=== PATIENT | male | born 1940 | race Caucasian/White ===

== ENCOUNTER 2020-10-10 12:47 | Inpatient (IN) ==
[2020-10-10 13:19] LABS: Hemoglobin 9.7 g/dL (12.9-16.9); Nucleated Red Blood Cells 0.7 /100 WBC (0)
[2020-10-10 13:21] LABS: Basophils # 0.1 K/mcL (0.0-0.2); Hematocrit 28.3 % (37.5-50.1); Immature Platelets 1.9 % (1.1-6.1); Mean Corpuscular HGB Conc 34.3 g/dL (31.6-35.5); Mean Corpuscular Hemoglobin 36.7 pg (28.0-33.3); Mean Corpuscular Volume 107.2 fL (83.0-100.0); Mean Platelet Volume 10.3 fL (9.4-12.4); Red Blood Count 2.64 M/mcL (4.19-5.50); Red Cell Distribution Width 17.7 % (11.5-14.5); White Blood Count 13.3 K/mcL (4.3-11.1)
[2020-10-10 13:30] LABS: INR 1.4; Prothrombin Time 16.1 Seconds (9.4-12.1)
[2020-10-10 13:41] LABS: BUN/Creatinine Ratio 25 (6-26); Blood Urea Nitrogen 32 mg/dL (8-23); Carbon Dioxide 22 mEq/L (23-29); Chloride 109 mEq/L (98-107); Glucose 114 mg/dL (70-105); Osmolality,Calculated 296 (280-300); Potassium 3.9 mEq/L (3.5-5.1); Sodium 139 mEq/L (136-145); Troponin I < 0.03 ng/mL (< 0.04); eGFR For African Americans > 60 (> 60); eGFR For Non-African Americans 55 (> 60)
[2020-10-10 13:47] LABS: Platelet Count 85 K/mcL (140-400)
[2020-10-10 13:56] LABS: Lymphocytes # 3.9 K/mcL (0.6-4.6); Monocytes # 6.4 K/mcL (0.0-1.3); Neutrophils # 0.5 K/mcL (1.6-8.9)
[2020-10-10 13:57] LABS: Anisocytosis 1+ (Not Present); Platelet Estimate Decreased (Normal); Reactive Lymphocytes Present (Not Present)
[2020-10-10] MEDS ORDERED: Aspirin 81 MG TAB.CHEW PO ONE (14:03)
[2020-10-10] MEDS ORDERED: Naloxone 0.4 MG/ML INJ IVP PRN (15:53)
[2020-10-10] MEDS ORDERED: *HR* OxyCODONE Immed Rel 5 MG TABLET PO PRN (16:10)
[2020-10-10] MEDS ORDERED: Acetaminophen 325 MG TABLET PO PRN (16:10)
[2020-10-10] MEDS ORDERED: *HR* HYDROcodone/Acet 5/325 mg TABLET PO PRN (16:10)
[2020-10-10] MEDS ORDERED: Ondansetron 4 MG/2 ML VIAL IVP PRN (16:10)
[2020-10-10] MEDS ORDERED: Melatonin 3 MG TABLET PO PRN (16:10)
[2020-10-10 16:11] LABS: Bilirubin,Urine Negative (Negative); Blood,Urine Trace (Negative); Clarity,Urine Clear (Clear); Color,Urine Yellow (Yellow); Glucose,Urine (UA) Normal (Normal); Granular Casts,Urine Few per lpf (None Seen); Hyaline Casts,Urine Few per lpf (None Seen); Ketones,Urine Negative (Negative); Leukocyte Esterase,Urine Negative (Negative); Mucus,Urine Few per lpf (None-Few); Nitrite,Urine Negative (Negative); Protein,Urine 50 mg/dL (Neg-Trace); Specific Gravity,Urine 1.027 (1.010-1.025); Squamous Epithelial Cell,Urine Few per hpf (None-Few)
[2020-10-10 17:08] LABS: Chol/HDL Ratio 4.8 (0-4.9); Cholesterol 81 mg/dL (< 200); HDL Cholesterol 17 mg/dL (40-59); LDL Cholesterol,Calculated 20 mg/dL (< 100); Triglycerides 219 mg/dL (< 150)
[2020-10-10] MEDS ORDERED: Perflutren Lipid Microsphere 1.3 ML in 0.9 % Sodium Chloride 8.7 ML IVP PRN (18:09)
[2020-10-10] MEDS ORDERED: Nitroglycerin 0.4 MG TAB.SUBL SL PRN (18:18)
[2020-10-11 00:53] LABS: Hematocrit 25.5 % (37.5-50.1); Hemoglobin 8.4 g/dL (12.9-16.9); Immature Platelets 2.2 % (1.1-6.1); Mean Corpuscular HGB Conc 32.9 g/dL (31.6-35.5); Mean Corpuscular Hemoglobin 35.3 pg (28.0-33.3); Mean Corpuscular Volume 107.1 fL (83.0-100.0); Mean Platelet Volume 9.9 fL (9.4-12.4); Nucleated Red Blood Cells 0.9 /100 WBC (0); Red Blood Count 2.38 M/mcL (4.19-5.50); Red Cell Distribution Width 17.6 % (11.5-14.5); White Blood Count 8.4 K/mcL (4.3-11.1)
[2020-10-11 00:56] LABS: Platelet Count 67 K/mcL (140-400)
[2020-10-11 01:09] LABS: Alanine Aminotransferase 13 Units/L (7-52); Albumin 3.5 g/dL (3.5-5.7); Albumin/Globulin Ratio 1.3 (1.1-2.2); Alkaline Phosphatase 44 Units/L (34-104); Aspartate Amino Transferase 20 Units/L (13-39); BUN/Creatinine Ratio 25 (6-26); Bilirubin,Total 0.5 mg/dL (0.3-1.0); Blood Urea Nitrogen 30 mg/dL (8-23); Calcium 8.7 mg/dL (8.6-10.3); Carbon Dioxide 21 mEq/L (23-29); Chloride 110 mEq/L (98-107); Globulin 2.8 g/dL (2.4-3.5); Glucose 95 mg/dL (70-105); Osmolality,Calculated 294 (280-300); Phosphorous 3.5 mg/dL (2.7-4.5); Potassium 3.8 mEq/L (3.5-5.1); Sodium 139 mEq/L (136-145); Total Protein 6.3 g/dL (6.4-8.9); eGFR For African Americans > 60 (> 60); eGFR For Non-African Americans 58 (> 60)
[2020-10-11 01:22] LABS: INR 1.4; Prothrombin Time 16.2 Seconds (9.4-12.1); Thyroid Stimulating Hormone 2.953 mcIU/mL (0.340-5.600)
[2020-10-11 01:42] LABS: Folate > 22.3 ng/mL (3.0-16.0); Vitamin B12 672 pg/mL (250-1100)
[2020-10-11 02:08] LABS: Lymphocytes # 4.7 K/mcL (0.6-4.6); Lymphocytes % 56.3 %; Monocytes # 1.4 K/mcL (0.0-1.3); Monocytes % 16.7 %; Myelocytes % 18.8 % (0); Neutrophils # 0.5 K/mcL (1.6-8.9); Segmented Neutrophils % 6.3 %
[2020-10-11 02:09] LABS: Anisocytosis 1+ (Not Present); Hypochromasia Present (Not Present)
[2020-10-11 02:10] LABS: Platelet Estimate Marked Decrease (Normal); Reactive Lymphocytes Present (Not Present); Tear Drop Cells 1+ (Not Present)
[2020-10-11 03:05] LABS: Estimated Average Glucose 146 mg/dl; Hemoglobin A1C 6.7 %
[2020-10-11] MEDS: Multivit/Ca/Min/Fe/FA 1 TAB TABLET PO SCH (08:29)
[2020-10-11] MEDS: Metoprolol XL (24 HR) Succ 25 MG TAB.ER.24H PO SCH (08:29)
[2020-10-11] MEDS: Aspirin Enteric Coated 81 MG Tablet PO SCH (08:29)
[2020-10-11] MEDS: Furosemide 20 MG/2 ML VIAL IVP SCH ×2 (11:00→20:21)
[2020-10-11] MEDS ORDERED: 0.9 % Sodium Chloride 500 ML ONE (14:29)
[2020-10-11] MEDS: Isosorbide MONOnitrate (24 HR) 30 MG TAB.ER.24H PO SCH (15:28)
[2020-10-12 02:59] LABS: Nucleated Red Blood Cells 0.5 /100 WBC (0); Red Cell Distribution Width 17.8 % (11.5-14.5)
[2020-10-12 03:01] LABS: Hematocrit 25.3 % (37.5-50.1); Hemoglobin 8.5 g/dL (12.9-16.9); Immature Platelets 2.2 % (1.1-6.1); Mean Corpuscular HGB Conc 33.6 g/dL (31.6-35.5); Mean Corpuscular Hemoglobin 36.2 pg (28.0-33.3); Mean Corpuscular Volume 107.7 fL (83.0-100.0); Mean Platelet Volume 10.1 fL (9.4-12.4); Red Blood Count 2.35 M/mcL (4.19-5.50)
[2020-10-12 03:04] LABS: Platelet Count 73 K/mcL (140-400)
[2020-10-12 03:19] LABS: Calcium 8.7 mg/dL (8.6-10.3); Potassium 4.1 mEq/L (3.5-5.1)
[2020-10-12 04:31] LABS: Lymphocytes # 3.8 K/mcL (0.6-4.6); Monocytes # 6.5 K/mcL (0.0-1.3); Reactive Lymphocytes Present (Not Present)
[2020-10-12 04:32] LABS: Anisocytosis 1+ (Not Present); Platelet Estimate Decreased (Normal)
[2020-10-12] MEDS: Isosorbide MONOnitrate (24 HR) 30 MG TAB.ER.24H PO SCH (07:30)
[2020-10-12] MEDS: Metoprolol XL (24 HR) Succ 25 MG TAB.ER.24H PO SCH (07:30)
[2020-10-12] MEDS: Aspirin Enteric Coated 81 MG Tablet PO SCH (07:30)
[2020-10-12] MEDS: Multivit/Ca/Min/Fe/FA 1 TAB TABLET PO SCH (07:30)
[2020-10-12] MEDS ORDERED: 0.9 % Sodium Chloride 250 ML IVC SCH (08:45)
[2020-10-12 15:22] VITALS: BP 149/66
== END 2020-10-12 16:14 | disposition home or self-care (01) | DRG 834 ==
LOC: EMEROOARM 12:47 → 2ANU 12:47 → SUATTDRO 15:46 → 2ANU 16:58
PROVIDERS: ADMIT Internal Medicine; ATTEND Internal Medicine

== ENCOUNTER 2020-11-20 14:57 | Inpatient (IN) ==
[~2020-11-20 14:57] MED LIST: 0.9 % Sodium Chloride 250 ML IVC SCH
[2020-11-20] MEDS ORDERED: Naloxone 0.4 MG/ML INJ IVP PRN (23:37)
[2020-11-21] MEDS: Cefepime HCl 2,000 MG in Water for inj. (sterile) 20 ML IVP SCH ×3 (00:01→20:27)
[2020-11-21 04:37] LABS: Bilirubin,Urine Negative (Negative); Blood,Urine Negative (Negative); Clarity,Urine Clear (Clear); Color,Urine Light-Yellow (Yellow); Glucose,Urine (UA) Normal (Normal); Ketones,Urine Negative (Negative); Leukocyte Esterase,Urine Negative (Negative); Nitrite,Urine Negative (Negative); Protein,Urine Trace mg/dL (Neg-Trace); Specific Gravity,Urine 1.016 (1.010-1.025); Urobilinogen,Urine Normal (Normal)
[2020-11-21 04:38] LABS: Hematocrit 21.5 % (37.5-50.1); Hemoglobin 7.4 g/dL (12.9-16.9); Mean Corpuscular HGB Conc 34.4 g/dL (31.6-35.5); Red Blood Count 2.31 M/mcL (4.19-5.50)
[2020-11-21 04:40] LABS: Immature Granulocytes % 4.6 % (0-4); Immature Platelets 3.9 % (1.1-6.1); Lymphocytes # 0.3 K/mcL (0.6-4.6); Mean Corpuscular Volume 93.1 fL (83.0-100.0); Mean Platelet Volume 11.8 fL (9.4-12.4); Monocytes # 0.2 K/mcL (0.0-1.3); Monocytes % 30.8 %; Neutrophils # 0.2 K/mcL (1.6-8.9); Red Cell Distribution Width 15.6 % (11.5-14.5); Segmented Neutrophils % 24.6 %
[2020-11-21 04:52] LABS: Albumin 2.9 g/dL (3.5-5.7); Albumin/Globulin Ratio 1.5 (1.1-2.2); Bilirubin,Total 1.2 mg/dL (0.3-1.0); Calcium 7.6 mg/dL (8.6-10.3); Potassium 4.3 mEq/L (3.5-5.1); Total Protein 4.9 g/dL (6.4-8.9)
[2020-11-21 05:05] LABS: Platelet Count 23 K/mcL (140-400); White Blood Count 0.7 K/mcL (4.3-11.1)
[2020-11-21 05:53] LABS: Platelet Estimate Marked Decrease (Normal)
[2020-11-21 06:32] LABS: Adenovirus Not Detected (Not Detect); Bordetella Pertussis Not Detected (Not Detect); Chlamydophila pneumoniae Not Detected (Not Detect); Coronavirus 229E Not Detected (Not Detect); Coronavirus HKU1 Not Detected (Not Detect); Coronavirus NL63 Not Detected (Not Detect); Coronavirus OC43 Not Detected (Not Detect); Human Metapneumovirus Not Detected (Not Detect); Human Rhinovirus/Enterovirus Not Detected (Not Detect); Influenza A Subtype 2009 H1 Not Detected (Not Detect); Influenza B Not Detected (Not Detect); Mycoplasma pneumoniae Not Detected (Not Detect); Parainfluenza Virus 1 Not Detected (Not Detect); Parainfluenza Virus 2 Not Detected (Not Detect); Parainfluenza Virus 3 Not Detected (Not Detect); Parainfluenza Virus 4 Not Detected (Not Detect); Respiratory Syncytial Virus Not Detected (Not Detect); SARS-CoV-2 Not Detected (Not Detect)
[2020-11-21] MEDS ORDERED: Sodium Bicarbonate 75 MEQ in 0.45 % Sodium Chloride 1,000 ML IVC SCH (08:45)
[2020-11-21] MEDS ORDERED: Vancomycin 1,500 MG/265 ML IV.SOLN IVPB SCH (10:00)
[2020-11-21] MEDS: VENETOCLAX 100 MG PO SCH (13:32)
[2020-11-21] MEDS ORDERED: Acetaminophen 325 MG TABLET PO ONE (17:13)
[2020-11-21] MEDS ORDERED: Acetaminophen IV 1,000 MG/100 ML BAG IVPB ONE (19:54)
[2020-11-21 20:25] LABS: Bilirubin,Urine Negative (Negative); Blood,Urine Negative (Negative); Clarity,Urine Clear (Clear); Color,Urine Light-Yellow (Yellow); Glucose,Urine (UA) Normal (Normal); Ketones,Urine Negative (Negative); Leukocyte Esterase,Urine Negative (Negative); Mucus,Urine Few per lpf (None-Few); Nitrite,Urine Negative (Negative); Protein,Urine Trace mg/dL (Neg-Trace); RBC,Urine 0-3 per hpf (0-3); Specific Gravity,Urine 1.015 (1.010-1.025); WBC,Urine 0-3 per hpf (0-3)
[2020-11-22 06:13] LABS: Eosinophils % 2.6 %; Hematocrit 21.8 % (37.5-50.1); Hemoglobin 7.4 g/dL (12.9-16.9); Lymphocytes # 0.2 K/mcL (0.6-4.6); Lymphocytes % 56.4 %; Mean Corpuscular HGB Conc 33.9 g/dL (31.6-35.5); Mean Corpuscular Hemoglobin 31.8 pg (28.0-33.3); Mean Corpuscular Volume 93.6 fL (83.0-100.0); Mean Platelet Volume 12.1 fL (9.4-12.4); Monocytes # 0.1 K/mcL (0.0-1.3); Monocytes % 23.1 %; Neutrophils # 0.1 K/mcL (1.6-8.9); Red Blood Count 2.33 M/mcL (4.19-5.50); Red Cell Distribution Width 15.2 % (11.5-14.5); Segmented Neutrophils % 17.9 %
[2020-11-22 06:19] LABS: Platelet Count 33 K/mcL (140-400); White Blood Count 0.4 K/mcL (4.3-11.1)
[2020-11-22 06:32] LABS: Anisocytosis 1+ (Not Present); Platelet Estimate Marked Decrease (Normal); Reactive Lymphocytes Present (Not Present)
[2020-11-22 06:42] LABS: BUN/Creatinine Ratio 20 (6-26); Blood Urea Nitrogen 23 mg/dL (8-23); Calcium 7.6 mg/dL (8.6-10.3); Carbon Dioxide 20 mEq/L (23-29); Chloride 109 mEq/L (98-107); Glucose 104 mg/dL (70-105); Magnesium 1.9 mg/dL (1.6-2.6); Osmolality,Calculated 282 (280-300); Phosphorous 2.4 mg/dL (2.7-4.5); Potassium 4.3 mEq/L (3.5-5.1); Sodium 134 mEq/L (136-145); eGFR For African Americans > 60 (> 60); eGFR For Non-African Americans > 60 (> 60)
[2020-11-22] MEDS: Cefepime HCl 2,000 MG in Water for inj. (sterile) 20 ML IVP SCH ×2 (08:01→20:10)
[2020-11-22] MEDS: allopurinoL 300 MG TABLET PO SCH (08:02)
[2020-11-22] MEDS: VENETOCLAX 100 MG PO SCH (08:02)
[2020-11-22] MEDS: Metoprolol XL (24 HR) Succ 25 MG TAB.ER.24H PO SCH (08:03)
[2020-11-22] MEDS: Magic Mouthwash 10 ML UD Cup PO SCH ×3 (08:56→16:08)
[2020-11-22] MEDS ORDERED: Sennosides/Docusate Sodium TABLET PO PRN (11:43)
[2020-11-22] MEDS ORDERED: Isovue-370 500 ML BOTTLE PO ONE (18:15)
[2020-11-22] MEDS: MetroNIDAZOLE 500 MG/100 ML 500 MG/100 ML BAG IVPB SCH (23:13)
[2020-11-23 03:20] LABS: Red Blood Count 2.19 M/mcL (4.19-5.50)
[2020-11-23 03:22] LABS: Hematocrit 20.5 % (37.5-50.1); Hemoglobin 6.8 g/dL (12.9-16.9); Immature Platelets 3.5 % (1.1-6.1); Lymphocytes % 76.5 %; Mean Corpuscular HGB Conc 33.2 g/dL (31.6-35.5); Mean Corpuscular Hemoglobin 31.1 pg (28.0-33.3); Mean Corpuscular Volume 93.6 fL (83.0-100.0); Mean Platelet Volume 10.7 fL (9.4-12.4); Monocytes % 11.8 %; Red Cell Distribution Width 15.4 % (11.5-14.5); Segmented Neutrophils % 11.7 %
[2020-11-23 03:25] LABS: Lymphocytes # 0.2 K/mcL (0.6-4.6); Platelet Count 49 K/mcL (140-400)
[2020-11-23 03:26] LABS: White Blood Count 0.3 K/mcL (4.3-11.1)
[2020-11-23 03:40] LABS: BUN/Creatinine Ratio 19 (6-26); Blood Urea Nitrogen 21 mg/dL (8-23); Calcium 7.4 mg/dL (8.6-10.3); Carbon Dioxide 21 mEq/L (23-29); Chloride 107 mEq/L (98-107); Glucose 107 mg/dL (70-105); Lipase 24 Units/L (11-82); Magnesium 1.8 mg/dL (1.6-2.6); Osmolality,Calculated 277 (280-300); Phosphorous 2.2 mg/dL (2.7-4.5); Potassium 4.2 mEq/L (3.5-5.1); Sodium 132 mEq/L (136-145); eGFR For African Americans > 60 (> 60); eGFR For Non-African Americans > 60 (> 60)
[2020-11-23 03:44] LABS: Platelet Estimate Decreased (Normal)
[2020-11-23] MEDS: Magic Mouthwash 10 ML UD Cup PO SCH ×3 (08:11→18:14)
[2020-11-23] MEDS: Cefepime HCl 2,000 MG in Water for inj. (sterile) 20 ML IVP SCH (08:12)
[2020-11-23] MEDS: allopurinoL 300 MG TABLET PO SCH (08:13)
[2020-11-23] MEDS: Metoprolol XL (24 HR) Succ 25 MG TAB.ER.24H PO SCH (08:13)
[2020-11-23] MEDS: VENETOCLAX 100 MG PO SCH (08:14)
[2020-11-23] MEDS: MetroNIDAZOLE 500 MG/100 ML 500 MG/100 ML BAG IVPB SCH ×2 (08:17→18:14)
[2020-11-23] MEDS ORDERED: Calcium Gluconate 1gm/50mL 1 GM/50 ML BAG IVPB ONE (09:13)
[2020-11-23 16:03] VITALS: BP 110/68
[2020-11-23 17:22] LABS: Hematocrit 24.2 % (37.5-50.1); Hemoglobin 8.1 g/dL (12.9-16.9)
== END 2020-11-23 18:54 | disposition home or self-care (01) | DRG 808 ==
LOC: SUATTDRO → INFINJ 14:57 → 3BNU 15:00
PROVIDERS: ADMIT Internal Medicine; ATTEND Internal Medicine

== ENCOUNTER 2020-12-30 20:23 | Observation (INO) ==
[2020-12-30] MEDS ORDERED: 0.9 % Sodium Chloride 1,000 ML IVC ONE (21:06)
[2020-12-30] MEDS ORDERED: Isovue-370 500 ML BOTTLE IVP ONE (21:06)
[2020-12-30 21:15] LABS: Basophils % 0.6 %; Eosinophils % 1.3 %; Hematocrit 38.3 % (37.5-50.1); Hemoglobin 12.7 g/dL (12.9-16.9); Immature Platelets 1.6 % (1.1-6.1); Lymphocytes # 0.5 K/mcL (0.6-4.6); Lymphocytes % 30.8 %; Mean Corpuscular HGB Conc 33.2 g/dL (31.6-35.5); Mean Corpuscular Hemoglobin 32.9 pg (28.0-33.3); Mean Corpuscular Volume 99.2 fL (83.0-100.0); Mean Platelet Volume 8.6 fL (9.4-12.4); Monocytes % 1.9 %; Red Blood Count 3.86 M/mcL (4.19-5.50); Red Cell Distribution Width 19.6 % (11.5-14.5); Segmented Neutrophils % 65.4 %; White Blood Count 1.6 K/mcL (4.3-11.1)
[2020-12-30 21:20] LABS: Bilirubin,Urine Negative (Negative); Blood,Urine Small (Negative); Clarity,Urine Clear (Clear); Color,Urine Yellow (Yellow); Glucose,Urine (UA) Normal (Normal); Hyaline Casts,Urine Few per lpf (None Seen); Ketones,Urine Trace mg/dL (Negative); Leukocyte Esterase,Urine Negative (Negative); Mucus,Urine Few per lpf (None-Few); Nitrite,Urine Negative (Negative); Protein,Urine 50 mg/dL (Neg-Trace); Specific Gravity,Urine 1.019 (1.010-1.025); Squamous Epithelial Cell,Urine Few per hpf (None-Few); Urobilinogen,Urine Normal (Normal)
[2020-12-30 21:32] LABS: BUN/Creatinine Ratio 26 (6-26); Blood Urea Nitrogen 22 mg/dL (8-23); Calcium 9.5 mg/dL (8.6-10.3); Carbon Dioxide 22 mEq/L (23-29); Chloride 103 mEq/L (98-107); Glucose 132 mg/dL (70-105); Osmolality,Calculated 285 (280-300); Potassium 3.9 mEq/L (3.5-5.1); Sodium 135 mEq/L (136-145); eGFR For African Americans > 60 (> 60); eGFR For Non-African Americans > 60 (> 60)
[2020-12-30 21:41] LABS: Alanine Aminotransferase 11 Units/L (7-52); Albumin/Globulin Ratio 1.4 (1.1-2.2); Alkaline Phosphatase 70 Units/L (34-104); Aspartate Amino Transferase 14 Units/L (13-39); Bilirubin,Direct 0.2 mg/dL (0.0-0.2); Bilirubin,Indirect 0.7 mg/dL (0.0-1.0); Bilirubin,Total 0.9 mg/dL (0.3-1.0); Globulin 2.9 g/dL (2.4-3.5); Lipase 7 Units/L (11-82); Total Protein 6.9 g/dL (6.4-8.9)
[2020-12-30 21:46] LABS: Neutrophils # 1.1 K/mcL (1.6-8.9)
[2020-12-30 21:47] LABS: Large Platelets Present (Not Present); Platelet Count 52 K/mcL (140-400); Platelet Estimate Decreased (Normal); Reactive Lymphocytes Present (Not Present)
[2020-12-30] MEDS ORDERED: Piperacillin/Tazobactam 3.375 GM in 0.9 % Sodium Chloride Mini Bag 100 ML IVPB ONE (22:45)
[2020-12-30] MEDS ORDERED: 0.9 % Sodium Chloride 1,000 ML IVC SCH (23:30)
[2020-12-30] MEDS ORDERED: Ketorolac 30 MG/ML VIAL IVP PRN (23:34)
[2020-12-30] MEDS ORDERED: Naloxone 0.4 MG/ML INJ IVP PRN (23:34)
[2020-12-30] MEDS ORDERED: *HR* Promethazine 25 MG/ML VIAL IM PRN (23:34)
[2020-12-30] MEDS ORDERED: Ondansetron 4 MG/2 ML VIAL IVP PRN (23:34)
[2020-12-31 02:01] LABS: Influenza A PCR Negative (Negative); Influenza B PCR Negative (Negative); Resp. Syncytial Virus PCR Negative (Negative)
[2020-12-31 02:02] LABS: SARS-CoV-2 by PCR (In House) Negative (Negative)
[2020-12-31] MEDS ORDERED: Levothyroxine Sodium 100 MCG VIAL IVP SCH (06:30)
[2020-12-31 06:49] LABS: Hemoglobin 11.2 g/dL (12.9-16.9); Red Cell Distribution Width 19.6 % (11.5-14.5)
[2020-12-31 06:52] LABS: Basophils % 3.1 %; Eosinophils % 3.1 %; Hematocrit 32.9 % (37.5-50.1); Immature Platelets 1.5 % (1.1-6.1); Lymphocytes # 0.2 K/mcL (0.6-4.6); Lymphocytes % 68.8 %; Mean Corpuscular Hemoglobin 33.6 pg (28.0-33.3); Mean Corpuscular Volume 98.8 fL (83.0-100.0); Mean Platelet Volume 10.9 fL (9.4-12.4); Monocytes % 3.1 %; Neutrophils # 0.1 K/mcL (1.6-8.9); Red Blood Count 3.33 M/mcL (4.19-5.50); Segmented Neutrophils % 21.9 %
[2020-12-31 06:56] LABS: Platelet Count 44 K/mcL (140-400)
[2020-12-31 06:59] LABS: White Blood Count 0.3 K/mcL (4.3-11.1)
[2020-12-31 07:00] LABS: Platelet Estimate Decreased (Normal); Reactive Lymphocytes Present (Not Present)
[2020-12-31 07:08] LABS: Alanine Aminotransferase 9 Units/L (7-52); Albumin 3.3 g/dL (3.5-5.7); Albumin/Globulin Ratio 1.4 (1.1-2.2); Alkaline Phosphatase 56 Units/L (34-104); Aspartate Amino Transferase 13 Units/L (13-39); BUN/Creatinine Ratio 26 (6-26); Bilirubin,Total 0.7 mg/dL (0.3-1.0); Blood Urea Nitrogen 23 mg/dL (8-23); Calcium 8.4 mg/dL (8.6-10.3); Carbon Dioxide 23 mEq/L (23-29); Chloride 107 mEq/L (98-107); Globulin 2.3 g/dL (2.4-3.5); Glucose 117 mg/dL (70-105); Osmolality,Calculated 287 (280-300); Sodium 136 mEq/L (136-145); Total Protein 5.6 g/dL (6.4-8.9); eGFR For African Americans > 60 (> 60); eGFR For Non-African Americans > 60 (> 60)
[2020-12-31] MEDS ORDERED: Piperacillin/Tazobactam 3.375 GM in 0.9 % Sodium Chloride Mini Bag 100 ML IVPB SCH (08:00)
[2020-12-31] MEDS ORDERED: *HR* HYDROmorphone PF 0.5 MG/0.5 ML SYRINGE IVP PRN ×2 (09:18→15:56)
[2020-12-31] MEDS ORDERED: *HR* FentaNYL (PF) 100 MCG/2 ML VIAL IVP PRN ×2 (09:18→15:56)
[2020-12-31] MEDS ORDERED: CefOXitin 1,000 MG VIAL ONE (14:03)
[2020-12-31] MEDS ORDERED: Acetaminophen IV 1,000 MG/100 ML BAG IVPB ONE (14:06)
[2020-12-31] MEDS ORDERED: *HR* FentaNYL (PF) 100 MCG/2 ML VIAL ONE (14:06)
[2020-12-31] MEDS ORDERED: *HR* Propofol 200 MG/20 ML VIAL IVP ONE (14:06)
[2020-12-31] MEDS ORDERED: Ondansetron 4 MG/2 ML VIAL ONE (14:07)
[2020-12-31] MEDS ORDERED: Lidocaine -MPF 2% 2 ML VIAL ONE (14:07)
[2020-12-31] MEDS ORDERED: *HR* Rocuronium Bromide 50 MG/5 ML VIAL ONE (14:07)
[2020-12-31] MEDS ORDERED: Sugammadex Sodium 200 MG/2 ML VIAL IV ONE (14:51)
[2020-12-31] MEDS ORDERED: Ketorolac 30 MG/ML VIAL IVP PRN (15:56)
[2020-12-31] MEDS ORDERED: *HR* Promethazine 25 MG/ML VIAL IM PRN (15:56)
[2020-12-31] MEDS ORDERED: 0.9 % Sodium Chloride 1,000 ML IVC SCH (15:56)
[2020-12-31] MEDS ORDERED: Naloxone 0.4 MG/ML INJ IVP PRN (15:56)
[2020-12-31] MEDS ORDERED: Ondansetron 4 MG/2 ML VIAL IVP PRN (15:56)
[2020-12-31] MEDS: Piperacillin/Tazobactam 3.375 GM in 0.9 % Sodium Chloride Mini Bag 100 ML IVPB SCH (18:44)
[2021-01-01] MEDS: Piperacillin/Tazobactam 3.375 GM in 0.9 % Sodium Chloride Mini Bag 100 ML IVPB SCH ×2 (00:01→08:35)
[2021-01-01] MEDS ORDERED: Levothyroxine Sodium 100 MCG VIAL IVP SCH (06:30)
[2021-01-01 06:42] VITALS: BP 142/76; PULSE 59; TEMP 98; O2SAT 98
[2021-01-01] MEDS ORDERED: Multivit/Ca/Min/Fe/FA 1 TAB TABLET PO SCH (09:00)
[2021-01-01] MEDS ORDERED: Acyclovir 200 MG CAPSULE PO SCH (09:00)
[2021-01-01] MEDS ORDERED: Venetoclax [Venclexta] 100 MG Tablet PO SCH (09:00)
[2021-01-01 09:10] LABS: Hemoglobin 11.2 g/dL (12.9-16.9); Mean Corpuscular HGB Conc 32.7 g/dL (31.6-35.5)
[2021-01-01 09:12] LABS: Hematocrit 34.3 % (37.5-50.1); Lymphocytes # 0.3 K/mcL (0.6-4.6); Lymphocytes % 90.6 %; Mean Corpuscular Hemoglobin 32.5 pg (28.0-33.3); Mean Corpuscular Volume 99.4 fL (83.0-100.0); Mean Platelet Volume 10.1 fL (9.4-12.4); Monocytes % 3.1 %; Red Blood Count 3.45 M/mcL (4.19-5.50); Red Cell Distribution Width 19.1 % (11.5-14.5); Segmented Neutrophils % 6.3 %
[2021-01-01 09:27] LABS: BUN/Creatinine Ratio 32 (6-26); Blood Urea Nitrogen 25 mg/dL (8-23); Calcium 8.7 mg/dL (8.6-10.3); Carbon Dioxide 21 mEq/L (23-29); Chloride 107 mEq/L (98-107); Glucose 126 mg/dL (70-105); Osmolality,Calculated 288 (280-300); Potassium 4.2 mEq/L (3.5-5.1); Sodium 136 mEq/L (136-145); eGFR For African Americans > 60 (> 60); eGFR For Non-African Americans > 60 (> 60)
[2021-01-01 09:35] LABS: Platelet Count 45 K/mcL (140-400)
[2021-01-01 09:40] LABS: White Blood Count 0.3 K/mcL (4.3-11.1)
[2021-01-01 09:46] LABS: Anisocytosis 1+ (Not Present); Platelet Estimate Decreased (Normal); Reactive Lymphocytes Present (Not Present)
== END 2021-01-01 11:47 | disposition home health service (06) ==
LOC: 3NENU 20:23 → EMEROOARM 20:23 → 3NENU 12-31 00:07
PROVIDERS: ADMIT Family Medicine; ATTEND Family Medicine